=== PATIENT | male | born 1950 | race Caucasian/White ===

== ENCOUNTER 2019-01-24 08:13 | Day surgery (SDC) | payer MEDICARE, BC, SELFPAY ==
[2019-01-24 08:25] VITALS: BP 111/72; PULSE 72; RESP 16; TEMP 35; O2SAT 97
[2019-01-24] MEDS: Lactated Ringers 1,000 ML 80 ML IV (08:47)
--- NOTE | 2019-01-24 10:30 | DI.RAD_ITS ---
SYMPTOMS/DIAGNOSIS: PORT-A-CATH PLACEMENT LINE PLACEMENT IN THE OR: Fluoroscopy Time: 11.4 sec Images of the chest were obtained during placement of a Port-a-Cath. The tip of the catheter appears to end in the region of the mid to distal superior vena cava. Follow-up evaluation with chest films is suggested to confirm placement position.
[2019-01-24] MEDS: CLINDAMYCIN 600 MG/50 ML BAG 100 MG IVPB (10:58)
[2019-01-24] MEDS: Heparin 500 UNITS/5 ML SYRINGE (11:20)
[2019-01-24] MEDS: Normal Saline 50 ML (11:20)
[2019-01-24] MEDS: Bupivacaine 0.25% Pres-Free 30 ML VIAL (11:31)
--- NOTE | 2019-01-24 11:49 | PDOC.DSDIS_ITS ---
Discharge Plan Disposition Patient Disposition: HOME Condition: Critical Discharge Details Reason For Visit: [facility] Attending Provider: Nicole Benedict Primary Care Provider: Luis Peter Home Meds and New Rx's Prescriptions: No Action No Known Home Meds RF: 0 Discharge Instructions Additional Instructions: Keep an ice bag on the incision. 20 minutes on and 20 minutes off. Ice keeps the swelling down and swelling causes pain. Make sure you wrap the ice pack in a towel and don't apply directly to the skin. -No driving x24 hrs or of you are taking narcotic pain medications. -Do Not remove any steri tapes (white tapes) that cover the incision. If you have steri-tapes on your incision, do not use antibacterial ointment. -regular diet -no straining to move bowels -pain meds are very constipating: if you do not move your bowels daily take a dose of OTC milk of magnesia -It is ok to shower. No bathe, soaking, swimming or hot tubs -Keep wound clean and dry. Wash incision with soap and water daily. Pat dry, don't rub. -If you do not have steri-tapes on your incision, than keep the wound covered with a gauze and antibacterial ointment. -Protein supplements daily. You may find that your appetite is smaller. Eat 3-6 small meals throughout the day. It is important to drink lots of water after surgery, 6-10 glasses a day. 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 -We do want you up walking, at least 5-6 times per day. This is very important to prevent pneumonia and blood clots. You can climb stairs, take them slowly. -No lifting over 5-10#'s for a one weeks time. -You may find that you are very tired after surgery- this is normal. Rest as needed. Activity:: no lifting over 10#'s right arm x 5 days Remove Dressings/Wound Care:: 24 hours Shower/Bathe:: 24 hours Diet:: watch for constipation Discharge Orders Discharge Orders: Discharge Order (Routine); Ordered 01/24/19 Ordered By: Nicole Benedict DS: Diagnosis Discharge Diagnosis (1) Cancer with unknown primary site: Status: Acute
--- NOTE | 2019-01-24 12:06 | W.PM.OP ---
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
--- NOTE | 2019-01-24 12:14 | DI.RAD_ITS ---
SYMPTOMS/DIAGNOSIS: LINE PLACEMENT PORTABLE CHEST: The lungs are well expanded and free of infiltrate. There is no pleural effusion. The cardiovascular structures are intact. A Port-a-Cath is noted in position. Its tip ending in the distal portion of the superior vena cava.
--- NOTE | 2019-01-25 13:41 | ROE_ITS ---
REPORT OF OPERATIVE PROCEDURE DATE OF PROCEDURE January 24, 2019 PREOPERATIVE DIAGNOSES Poorly differentiated widely metastatic cancer of unknown primary/need for venous access for chemotherapy. POSTOPERATIVE DIAGNOSES Poorly differentiated widely metastatic cancer of unknown primary/need for venous access for chemotherapy. PROCEDURE Insertion of right subclavian power port. SURGEON Nicole Benedict D.O. ANESTHESIA General. ESTIMATED BLOOD LOSS 5 cc. IMPLANT Power port. SPECIMEN No specimen. COMPLICATIONS The patient tolerated the procedure well without complication. HISTORY Mr. Bonner is a 68-year-old male at the request of Oncology and is here today for power port insertion. He is right handed. He has a history of a prior left clavicle fracture and has plates and screws. He has tumor in the left lung. He is uncertain if he will be having radiation or not. We will place the power port on the right side. Informed consent was obtained explaining the risks and benefits of the procedure including, not limited to bleeding, infection, pneumonia, blood clots, thrombosis, infection and need for removal, pneumothorax, damage to vein, artery and nerves, other unforetold complications. DESRIPTION OF PROCEDURE He is marked in Preop. He is brought back to the Operative Suite and placed in the supine position. An axillary roll is placed. He did receive preoperative antibiotics. He was placed in deep Trendelenburg with a safety strap. Anesthesia is administered per the department of Anesthesia. He is prepped and draped in usual sterile fashion using ChloraPrep scrub solution. Timeout is performed. The port was flushed prior to beginning the procedure. 10cc of .25% Marcaine is used for local anethesia. The Cook canulation needle was used to cannulate the right subclavian vein with return of dark red, non-pulsatile blood flow. The guidewire was easily inserted. The needle was removed. A skin toma is made with a #11 blade. Sheath and dilator is passed over the guidewire keeping good control of guidewire at all times. Guidewire and dilator are removed. Previously flushed catheter is inserted into 20cm position, fluoroscopy was used to ensure good positioning. The peel away sheath was removed. The catheter is cut to the proper length and catheter attached to the hub with the hub clamp on. Again, fluoroscopy is used to ensure proper positioning. A pocket is then created with Jimbo and electrocautery was used to provide hemostasis. The hub was sewn to the anterior chest wall with a #3-0 Prolene. The pocket was then irrigated. Dark red, nonpulsatile blood flow was aspirated from the port and it was then flushed with heparinized saline. The pocket is irrigated. Tissue is closed with two layers in #4-0 Monocryl. Compression dressing is applied. The patient tolerated the procedure well and transferred to the Recovery room in stable condition. Post procedure check X-ray shows line is in good position and no pneumothorax. The patient tolerated the procedure well without complications. He will followup with Oncology Infusion. CC: [facility] Luis Peter D.O.
== END 2019-01-24 13:21 | disposition home or self-care (01) ==
PROVIDERS: PCP Internal Medicine; Visit Provider Surgery
PROC: (CPT 36561; principal; 2019-01-24 09:30)
DX: C80.1 Malignant (primary) neoplasm, unspecified (principal); Z45.2 Encounter for adjustment and management of vascular access device
CPT/HCPCS: 36561; 71045; 77001; C1788; J2250

== ENCOUNTER 2019-02-24 01:41 | Outpatient (RCR) | payer MEDICARE, BC, SELFPAY ==
[2019-02-17] MEDS: Normal Saline Flush 10 ML SYR IVP (08:26)
[2019-02-17 08:49] LABS: Abs Immature Grans 0.01 k/cumm (0.0-0.09); Absolute Basophil Count 0.01 k/cumm (0.0-0.2); Absolute Eosinophil Count 0.15 k/cumm (0.0-0.7); Absolute Lymphocyte Count 0.88 k/cumm (1.2-3.4); Absolute Monocyte Count 0.91 k/cumm (0.11-0.7); Absolute Neutrophil Count 2.79 k/cumm (1.2-6.7); Basophils % 0.2; Eosinophils % 3.2; HCT 37.7 % (40.0-50.0); HGB 12.5 g/dL (13.5-17.5); Immature Grans % 0.2; Lymphocytes % 18.5; Mean Corp. HGB Concentration 33.2 g/dL (32.0-36.0); Mean Corpuscular Hemoglobin 31.6 pg (27.0-33.0); Mean Corpuscular Volume 95.4 fL (80-95); Mean Platelet Volume 9.3 fL (8.0-11.0); Monocytes % 19.2; Neutrophils % 58.7; Platelet Count 462 x1000/uL (130-400); RBC 3.95 m/cumm (4.50-6.00); RBC Distribution Width 12.8 % (11.8-14.1); White Blood Cell Count 4.75 k/cumm (4.4-10.8)
[2019-02-17 09:01] LABS: ALT 28 U/L (12-78); AST 51 U/L (15-37); Albumin 2.8 g/dL (3.4-5.0); Alkaline Phosphatase 266 U/L (46-116); Anion Gap 7.5 mmol/L (3-11); BUN 17 mg/dL (7-18); Bilirubin, Total 0.5 mg/dL (0.2-1.0); CO2 28.5 mmol/L (21.0-32.0); CREATININE 0.97 mg/dL (0.70-1.30); Calcium 8.8 mg/dL (8.5-10.1); Chloride 101 mmol/L (98-107); Glucose 107 mg/dL (70-100); Magnesium 1.9 mg/dL (1.8-2.4); Potassium 4.1 mmol/L (3.5-5.1); Sodium 137 mmol/L (136-145); Total Protein 7.3 g/dL (6.4-8.2)
[2019-02-20 12:12] LABS: CA 19-9 34 U/mL (<35)
[2019-02-24] MEDS: Normal Saline Flush 10 ML SYR IVP (09:05)
[2019-02-24 09:51] LABS: ALT 36 U/L (12-78); AST 46 U/L (15-37); Albumin 2.9 g/dL (3.4-5.0); Alkaline Phosphatase 278 U/L (46-116); Anion Gap 10.6 mmol/L (3-11); BUN 15 mg/dL (7-18); Bilirubin, Total 0.4 mg/dL (0.2-1.0); CO2 27.4 mmol/L (21.0-32.0); CREATININE 0.95 mg/dL (0.70-1.30); Calcium 9.4 mg/dL (8.5-10.1); Chloride 99 mmol/L (98-107); Glucose 103 mg/dL (70-100); Magnesium 1.6 mg/dL (1.8-2.4); Potassium 4.3 mmol/L (3.5-5.1); Sodium 137 mmol/L (136-145); Total Protein 7.4 g/dL (6.4-8.2)
[2019-02-24 09:52] LABS: Abs Immature Grans 0.07 k/cumm (0.0-0.09); Absolute Basophil Count 0.01 k/cumm (0.0-0.2); Absolute Eosinophil Count 0.12 k/cumm (0.0-0.7); Absolute Lymphocyte Count 1.08 k/cumm (1.2-3.4); Absolute Monocyte Count 0.76 k/cumm (0.11-0.7); Absolute Neutrophil Count 2.09 k/cumm (1.2-6.7); Basophils % 0.2; Eosinophils % 2.9; HCT 38.5 % (40.0-50.0); HGB 12.9 g/dL (13.5-17.5); Immature Grans % 1.7; Lymphocytes % 26.2; Mean Corp. HGB Concentration 33.5 g/dL (32.0-36.0); Mean Corpuscular Hemoglobin 31.5 pg (27.0-33.0); Mean Corpuscular Volume 94.1 fL (80-95); Mean Platelet Volume 9.6 fL (8.0-11.0); Monocytes % 18.4; Neutrophils % 50.6; RBC 4.09 m/cumm (4.50-6.00); White Blood Cell Count 4.13 k/cumm (4.4-10.8)
[2019-02-24 09:56] LABS: Platelet Count 210 x1000/uL (130-400)
[2019-02-27 11:51] LABS: CA 19-9 37 U/mL (<35)
== END 2019-03-05 23:59 | disposition home or self-care (01) ==
LOC: INF 01:41
PROVIDERS: PCP Internal Medicine; Visit Provider Internal Medicine Hematology & Oncology
DX: C22.1 Intrahepatic bile duct carcinoma (principal); C78.7 Secondary malignant neoplasm of liver and intrahepatic bile duct; Z45.2 Encounter for adjustment and management of vascular access device
CPT/HCPCS: 36591; 80053; 83735; 85025; 86301

== ENCOUNTER 2019-03-31 02:24 | Outpatient (RCR) | payer MEDICARE, BC, SELFPAY ==
[2019-03-10] MEDS: Normal Saline Flush 10 ML SYR IVP (09:00)
[2019-03-10 09:54] LABS: Abs Immature Grans 0.02 k/cumm (0.0-0.09); Absolute Basophil Count 0.01 k/cumm (0.0-0.2); Absolute Eosinophil Count 0.17 k/cumm (0.0-0.7); Absolute Lymphocyte Count 0.92 k/cumm (1.2-3.4); Absolute Monocyte Count 0.76 k/cumm (0.11-0.7); Absolute Neutrophil Count 4.66 k/cumm (1.2-6.7); Basophils % 0.2; Eosinophils % 2.6; HCT 36.5 % (40.0-50.0); HGB 11.9 g/dL (13.5-17.5); Immature Grans % 0.3; Lymphocytes % 14.1; Mean Corp. HGB Concentration 32.6 g/dL (32.0-36.0); Mean Corpuscular Hemoglobin 31.2 pg (27.0-33.0); Mean Corpuscular Volume 95.8 fL (80-95); Mean Platelet Volume 9.4 fL (8.0-11.0); Monocytes % 11.6; Neutrophils % 71.2; Platelet Count 256 x1000/uL (130-400); RBC 3.81 m/cumm (4.50-6.00); White Blood Cell Count 6.54 k/cumm (4.4-10.8)
[2019-03-10 10:07] LABS: ALT 24 U/L (12-78); AST 46 U/L (15-37); Albumin 2.9 g/dL (3.4-5.0); Alkaline Phosphatase 250 U/L (46-116); Anion Gap 6.5 mmol/L (3-11); BUN 17 mg/dL (7-18); Bilirubin, Total 0.7 mg/dL (0.2-1.0); CO2 28.5 mmol/L (21.0-32.0); CREATININE 0.93 mg/dL (0.70-1.30); Calcium 8.9 mg/dL (8.5-10.1); Chloride 102 mmol/L (98-107); Glucose 127 mg/dL (70-100); Magnesium 1.7 mg/dL (1.8-2.4); Potassium 4.2 mmol/L (3.5-5.1); Sodium 137 mmol/L (136-145)
[2019-03-13 10:03] LABS: CA 19-9 36 U/mL (<35)
[2019-03-17] MEDS: Normal Saline Flush 10 ML SYR IVP (07:47)
[2019-03-17 08:20] LABS: Abs Immature Grans 0.04 k/cumm (0.0-0.09); Absolute Basophil Count 0.02 k/cumm (0.0-0.2); Absolute Eosinophil Count 0.24 k/cumm (0.0-0.7); Absolute Monocyte Count 0.78 k/cumm (0.11-0.7); Basophils % 0.5; Eosinophils % 5.6; HCT 36.6 % (40.0-50.0); HGB 12.1 g/dL (13.5-17.5); Immature Grans % 0.9; Mean Corp. HGB Concentration 33.1 g/dL (32.0-36.0); Mean Corpuscular Hemoglobin 31.2 pg (27.0-33.0); Mean Corpuscular Volume 94.3 fL (80-95); Mean Platelet Volume 9.6 fL (8.0-11.0); Monocytes % 18.2; Neutrophils % 53.8; Platelet Count 167 x1000/uL (130-400); RBC 3.88 m/cumm (4.50-6.00); RBC Distribution Width 14.9 % (11.8-14.1); White Blood Cell Count 4.28 k/cumm (4.4-10.8)
[2019-03-17 08:30] LABS: ALT 30 U/L (12-78); AST 37 U/L (15-37); Albumin 2.8 g/dL (3.4-5.0); Alkaline Phosphatase 264 U/L (46-116); Anion Gap 10.7 mmol/L (3-11); BUN 17 mg/dL (7-18); Bilirubin, Total 0.4 mg/dL (0.2-1.0); CO2 25.3 mmol/L (21.0-32.0); CREATININE 0.93 mg/dL (0.70-1.30); Calcium 8.9 mg/dL (8.5-10.1); Chloride 101 mmol/L (98-107); Glucose 123 mg/dL (70-100); Magnesium 1.8 mg/dL (1.8-2.4); Potassium 4.3 mmol/L (3.5-5.1); Sodium 137 mmol/L (136-145); Total Protein 7.1 g/dL (6.4-8.2)
[2019-03-22 11:14] LABS: CA 19-9 28 U/mL (<35)
[2019-03-31] MEDS: Normal Saline Flush 10 ML SYR IVP (07:45)
[2019-03-31 08:23] LABS: Abs Immature Grans 0.01 k/cumm (0.0-0.09); Absolute Basophil Count 0.01 k/cumm (0.0-0.2); Absolute Eosinophil Count 0.18 k/cumm (0.0-0.7); Absolute Lymphocyte Count 0.94 k/cumm (1.2-3.4); Absolute Monocyte Count 0.84 k/cumm (0.11-0.7); Absolute Neutrophil Count 4.54 k/cumm (1.2-6.7); Basophils % 0.2; Eosinophils % 2.8; HCT 35.4 % (40.0-50.0); HGB 11.7 g/dL (13.5-17.5); Immature Grans % 0.2; Lymphocytes % 14.4; Mean Corp. HGB Concentration 33.1 g/dL (32.0-36.0); Mean Corpuscular Hemoglobin 31.9 pg (27.0-33.0); Mean Corpuscular Volume 96.5 fL (80-95); Mean Platelet Volume 9.2 fL (8.0-11.0); Monocytes % 12.9; Neutrophils % 69.5; Platelet Count 221 x1000/uL (130-400); RBC 3.67 m/cumm (4.50-6.00); White Blood Cell Count 6.52 k/cumm (4.4-10.8)
[2019-03-31 08:47] LABS: ALT 33 U/L (12-78); AST 67 U/L (15-37); Alkaline Phosphatase 260 U/L (46-116); Anion Gap 7.7 mmol/L (3-11); BUN 15 mg/dL (7-18); Bilirubin, Total 0.6 mg/dL (0.2-1.0); CO2 28.3 mmol/L (21.0-32.0); CREATININE 0.95 mg/dL (0.70-1.30); Calcium 9.4 mg/dL (8.5-10.1); Chloride 103 mmol/L (98-107); Glucose 106 mg/dL (70-100); Magnesium 1.7 mg/dL (1.8-2.4); Potassium 4.5 mmol/L (3.5-5.1); Sodium 139 mmol/L (136-145); Total Protein 7.1 g/dL (6.4-8.2)
[2019-04-03 10:14] LABS: CEA <0.5 ng/ml
[2019-04-03 14:18] LABS: CA 19-9 47 U/mL (<35)
== END 2019-04-05 23:59 | disposition home or self-care (01) ==
LOC: INF 02:24
PROVIDERS: PCP Internal Medicine; Visit Provider Internal Medicine Hematology & Oncology
DX: R97.8 Other abnormal tumor markers (principal); C22.1 Intrahepatic bile duct carcinoma; Z45.2 Encounter for adjustment and management of vascular access device
CPT/HCPCS: 36591; 80053; 82378; 83735; 85025; 86301

== ENCOUNTER 2019-04-24 01:41 | Outpatient (RCR) | payer MEDICARE, BC, SELFPAY ==
[2019-04-24] MEDS: Normal Saline Flush 10 ML SYR IVP (08:35)
[2019-04-24] MEDS: Heparin 500 UNITS/5 ML SYRINGE IV (08:35)
[2019-04-24 09:18] LABS: ALT 20 U/L (12-78); AST 72 U/L (15-37); Albumin 2.8 g/dL (3.4-5.0); Alkaline Phosphatase 270 U/L (46-116); Anion Gap 7.5 mmol/L (3-11); BUN 14 mg/dL (7-18); Bilirubin, Total 0.6 mg/dL (0.2-1.0); CO2 29.5 mmol/L (21.0-32.0); CREATININE 1.02 mg/dL (0.70-1.30); Calcium 10.2 mg/dL (8.5-10.1); Chloride 99 mmol/L (98-107); Glucose 132 mg/dL (70-100); Magnesium 1.5 mg/dL (1.8-2.4); Potassium 4.1 mmol/L (3.5-5.1); Sodium 136 mmol/L (136-145); Total Protein 7.7 g/dL (6.4-8.2)
[2019-04-24 09:26] LABS: Abs Immature Grans 0.02 k/cumm (0.0-0.09); Absolute Basophil Count 0.02 k/cumm (0.0-0.2); Absolute Eosinophil Count 0.15 k/cumm (0.0-0.7); Absolute Lymphocyte Count 0.91 k/cumm (1.2-3.4); Absolute Monocyte Count 0.75 k/cumm (0.11-0.7); Absolute Neutrophil Count 7.03 k/cumm (1.2-6.7); Basophils % 0.2; Eosinophils % 1.7; HCT 36.1 % (40.0-50.0); HGB 11.9 g/dL (13.5-17.5); Immature Grans % 0.2; Lymphocytes % 10.2; Mean Corpuscular Hemoglobin 31.8 pg (27.0-33.0); Mean Corpuscular Volume 96.5 fL (80-95); Mean Platelet Volume 9.7 fL (8.0-11.0); Monocytes % 8.4; Neutrophils % 79.3; Platelet Count 198 x1000/uL (130-400); RBC 3.74 m/cumm (4.50-6.00); RBC Distribution Width 15.7 % (11.8-14.1); White Blood Cell Count 8.88 k/cumm (4.4-10.8)
== END 2019-05-06 23:59 | disposition home or self-care (01) ==
LOC: INF 01:41
PROVIDERS: PCP Internal Medicine; Visit Provider Internal Medicine Hematology & Oncology
DX: C22.1 Intrahepatic bile duct carcinoma (principal); Z45.2 Encounter for adjustment and management of vascular access device
CPT/HCPCS: 36591; 80053; 83735; 85025